=== PATIENT | female | born 1960 | race Caucasian/White ===

== ENCOUNTER 2019-06-10 07:09 | Outpatient (CLI) | payer BC, SELFPAY ==
--- NOTE | 2019-06-10 | XR_ITS ---
WS: [id number] PROCEDURE: XR chest 2V* [id number] CLINICAL INFORMATION: SHORTNESS OF BREATH; PREOP COMPARISON: 018 FINDINGS: Heart: Normal cardiac silhouette. Aortic calcification. Lungs: Chronic emphysematous changes. Subsegmental atelectasis left lung base. No acute pulmonary inf iltrates. Bones: Mild thoracic kyphosis. Osteopenia. XR/XR chest 2V* [id number] IMPRESSION: Subsegmental atelectasis left lung base. Chest otherwise unremarkable.
== END 2019-06-10 07:10 | disposition home or self-care (01) ==
LOC: RADOUTREAD 12:22
PROVIDERS: Family Provider Family Medicine; Visit Provider Family Medicine
DX: Z76.89 Persons encountering health services in other specified circumstances (principal)

== ENCOUNTER 2020-06-12 08:58 | Outpatient (CLI) | payer BC, SELFPAY ==
--- NOTE | 2020-06-12 09:02 | MM_ITS ---
WS: [id number] DIAGNOSTIC BILATERAL DIGITAL MAMMOGRAM WITH CAD RIGHT breast ultrasound, limited HISTORY: DISCHARGE FROM [facility] COMPARISON: 04/20/2018 and 11/09/2015 TECHNIQUE: Bilateral craniocaudad, mediolateral oblique, and mediolateral views are submitted. Spot c ompression RIGHT CC. Computer aided detection utilized. Breast composition: There are scattered areas of fibroglandular density. Normal fibroglandular patter n. No suspicious masses or calcifications. No nipple retraction or dilated ducts. RIGHT breast ultrasound, limited. No mass or dilated duct noted throughout the anterior breast. There is no nipple retraction. MM/[place] [id number] IMPRESSION: BI-RADS: 1-Negative FOLLOW UP: 1 Year Follow-up No mammographic or ultrasound abnormality RIGHT breast to explain nipple discha osmane.
== END 2020-06-12 08:59 | disposition home or self-care (01) ==
LOC: RADSHAW 09:00
PROVIDERS: PCP Family Medicine; Visit Provider Family Medicine
DX: N64.52 Nipple discharge (principal)
CPT/HCPCS: 76642; 77066

== ENCOUNTER 2020-08-08 15:22 | Outpatient (CLI) | payer BC, SELFPAY ==
--- NOTE | 2020-08-08 15:39 | XR_ITS ---
WS: [id number] DEXA (DUAL ENERGY X-RAY ABSORPTIOMETRY) Bone mineral density was performed using a [employer] machine. HISTORY: POST MENOPAUSAL COMPARISON: None available. Lumbar spine BMD (L1-L4): 0.951 g/cm2 T score: -1.9 Z score: -1.7 Total hip BMD: Left: 0.683 g/cm2. T score: -2.6 Z score: -2.3 Right: 0.664 g/cm2. T score: -2.7 Z score: -2.5 10 year probability of a major osteoporotic fracture is 19%. XR/XR DEXA axial skeleton* [id number] IMPRESSION: OSTEOPOROSIS based upon the WHO classification for females.
== END 2020-08-08 15:23 | disposition home or self-care (01) ==
LOC: RADWPI 15:28
PROVIDERS: PCP Family Medicine; Visit Provider Family Medicine
DX: Z78.0 Asymptomatic menopausal state (principal); M81.0 Age-related osteoporosis without current pathological fracture
CPT/HCPCS: 77080

== ENCOUNTER 2021-02-02 08:36 | Outpatient (CLI) | payer BC, SELFPAY ==
--- NOTE | 2021-02-02 09:00 | MR_ITS ---
WS: [id number] MRI NECK WITH CONTRAST TECHNIQUE: Noncontrast axial T1, axial T2 FSE fat sat, coronal T2 fat sat, coronal T1, coronal T1 fat sat, sagittal T2 fat sat, plus contrast enhanced coronal, sagittal, and axial T1 fat sat images obta ined. CLINICAL INFORMATION: ATYPICAL FACIAL PAIN COMPARISON: None. FINDINGS: Normal vascular flow voids at the skull base. Proximal 7th and 8th cranial nerves appear normal. Norm al trigeminal nerve root entry zones. Normal Meckel's cave. Mastoid air cells are well aerated. Mild mucosal thickening in the paranasal sinuses. Parotid glands are normal. Normal submandibular glands. Tongue base appears normal. Normal parapharyn geal fat. No cervical lymphadenopathy. Normal thyroid gland. No evidence of supraglottic or glottic m ass. Subglottic airway is patent. Normal cervical alignment. Disc osteophyte complexes mild central canal stenosis at C5-C6 and C6-C7 w orse at C5-C6. MR/MR orbit face neck wo/w* [id number] IMPRESSION: 1. Proximal 7th and 8th cranial nerves appear normal. Normal trigeminal nerve root entry zones. 2. Mild mucosal thickening in the paranasal sinuses. Mastoid air cells are wel l aerated. 3. No cervical lymphadenopathy. 4. No evidence of supraglottic or glottic mass. 5. Normal salivary glands. 6. Small disc osteophyte complexes at C5-C6 and C6-C7 with mild central canal stenosis.
[2021-02-02 09:46] LABS: Blood Urea Nitrogen 15 mg/dL (8-23)
[2021-02-02] MEDS: gadobenate dimeglumine 20 mL vial IV (10:11)
== END 2021-02-02 08:37 | disposition home or self-care (01) ==
PROVIDERS: PCP Family Medicine; Visit Provider Otolaryngology
DX: G50.1 Atypical facial pain (principal); M25.78 Osteophyte, vertebrae; M48.02 Spinal stenosis, cervical region
CPT/HCPCS: 70543; 82565; 84520; A9577

== ENCOUNTER → 2021-04-02 08:12 | Outpatient (BNVA) | payer BC, SELFPAY | PROVIDERS: PCP Family Medicine; Visit Provider Specialist | DX: G24.5 Blepharospasm (principal); E50.7 Other ocular manifestations of vitamin A deficiency; M41.9 Scoliosis, unspecified; Z87.891 Personal history of nicotine dependence | CPT/HCPCS: 99204 ==

== ENCOUNTER → 2021-04-26 08:25 | Outpatient (BNVA) | payer BC, SELFPAY | PROVIDERS: PCP Family Medicine; Visit Provider Specialist | DX: G24.5 Blepharospasm (principal); M50.90 Cervical disc disorder, unspecified, unspecified cervical region | CPT/HCPCS: 64612; 99213; 99214; J0585 ==

== ENCOUNTER → 2021-08-21 12:10 | Outpatient (BNVA) | payer BC, SELFPAY | PROVIDERS: PCP Family Medicine; Visit Provider Internal Medicine | DX: H15.009 Unspecified scleritis, unspecified eye (principal); H15.109 Unspecified episcleritis, unspecified eye; M19.90 Unspecified osteoarthritis, unspecified site | CPT/HCPCS: 36415; 81003; 82306; 82550; 83516; 85651; 86140; 86160; 86162; 86200; 86235; 86255; 86376; 86431; 86480; 86704; 86803; 87340 ==

== ENCOUNTER 2021-09-13 10:52 | Outpatient (CLI) | payer BC, SELFPAY ==
--- NOTE | 2021-09-13 11:00 | MM_ITS ---
WS: [id number] SCREENING 3D TOMOSYNTHESIS DIGITAL MAMMOGRAM WITH CAD HISTORY: SCREENING COMPARISON: 06/12/2020 and 04/20/2018 Bilateral CC and MLO views submitted. Computer aided detection analyzed. Breast composition: The breasts are almost entirely fatty. No suspicious masses, microcalcifications or architectural distortion. MM/[place] [id number] IMPRESSION: BI-RADS: 1-Negative FOLLOW UP: 1 Year Follow-up
--- NOTE | 2021-09-13 15:04 | XR_ITS ---
WS: [id number] Hips, bilateral. HISTORY: Chronic joint pain. COMPARISON: No similar studies. RIGHT hip: Mild narrowing of the hip joint. No significant osteophyte development. No erosions or sof t tissue abnormality. LEFT hip: Minimal narrowing of the LEFT hip joint. No significant osteophyte development. No erosions or soft tissue abnormality. XR/XR hip BI 3-4V wo/[place] [id number] IMPRESSION: Mild bilateral hip joint osteoarthritis.
--- NOTE | 2021-09-13 15:04 | XR_ITS ---
WS: [id number] SACROILIAC JOINTS TECHNIQUE: AP and oblique imaging is submitted. HISTORY: L40.9 - Psoriasis, unspecified COMPARISON: None available. SI joints are partially obscured by bowel gas and colon content. No significant sclerosis or widening . No erosions are identified. Limited visualization of the sacrum. No soft tissue abnormality. XR/XR sacroiliac jts m 3V [id number] IMPRESSION: Limited visualization of the SI joints due to GI tract contents. No abnormality is identified. No erosions or widening.
--- NOTE | 2021-09-13 15:04 | XR_ITS ---
WS: [id number] RIGHT HAND: 2 VIEW(S) TECHNIQUE: PA and lateral. HISTORY: M19.90 - Unspecified osteoarthritis, unspecified site COMPARISON: None available. No acute fracture or dislocation. No soft tissue or bone abnormality. No erosions. No soft tissue edema. XR/XR hand RT 2V [id number] IMPRESSION: Normal RIGHT hand.
--- NOTE | 2021-09-13 15:04 | XR_ITS ---
WS: [id number] LEFT HAND: 2 VIEW(S) TECHNIQUE: PA and lateral. HISTORY: M19.90 - Unspecified osteoarthritis, unspecified site COMPARISON: None available. No acute fracture or dislocation. No soft tissue or bone abnormality. No erosions. No soft tissue edema. XR/XR hand LT 2V [id number] IMPRESSION: Normal LEFT hand.
== END 2021-09-13 10:53 | disposition home or self-care (01) ==
LOC: RAD 10:56
PROVIDERS: PCP Family Medicine; Visit Provider Family Medicine
DX: Z12.31 Encounter for screening mammogram for malignant neoplasm of breast (principal); L40.9 Psoriasis, unspecified; M50.90 Cervical disc disorder, unspecified, unspecified cervical region; M41.9 Scoliosis, unspecified; H15.009 Unspecified scleritis, unspecified eye; H15.109 Unspecified episcleritis, unspecified eye
CPT/HCPCS: 72202; 73120; 73522; 77063; 77067

== ENCOUNTER 2022-04-25 03:06 | Inpatient (IN) | payer BC, SELFPAY ==
[2022-04-25] VITALS (14 sets, daily range): BP systolic 98–131; BP diastolic 57–84; PULSE 67–84; RESP 16–25; TEMP 36.6–36.9; O2SAT 93–100; BMI 30.6; BMI 32.3
--- NOTE | 2022-04-25 03:10 | XRR_ITS ---
PROCEDURE INFORMATION: Exam: XR Left Shoulder Exam date and time: 04/25/2022 3:15 AM Age: 61 years old Clinical indication: Injury or trauma; Blunt trauma (contusions or hematomas); Patient HX: Fall this a. M. In bathroom at home landing on left shoulder. C/O pain and unable to ambulate left extremity. TECHNIQUE: Imaging protocol: Radiologic exam of the Left shoulder. Views: 2 or more views. COMPARISON: 1. MR orbit face neck wo/w* [id number] 2021-02-02 09:19 2. CR XR chest 2V* [id number] 2019-06-10 07:09 3. CR XR chest 2V* [id number] 2017-08-26 14:04 FINDINGS: Bones/joints: Displaced fracture of the left numeral neck. Soft tissues: Normal. XR/XR shoulder LT min 2V* [id number] IMPRESSION: Displaced fracture of the left numeral neck.
--- NOTE | 2022-04-25 03:14 | W.ED.EXTPRO ---
HPI - Extremity Problem General: Chief complaint: Extremity Injury, Upper Stated complaint: Fell Shoulder, Arm Time Seen by Provider: 04/25/22 03:08 Source: patient Mode of arrival: ambulatory Limitations: no limitations History of Present Illness: 61-year-old female who states that she got up tonight to go to the bathroom slipped in dog vomit and fell on her left shoulder. States she felt a pop in her shoulder had pain since the event and unable to move her left arm states this happened just before arrival denies any other injuries denies hitting her head denies any neck pain she rates her pain a 7 out of 10 currently Associated symptoms: Deny chest pain, fever(s) or rash Review of Systems Const: Denies: fever(s), chills, body aches or change in appetite Eyes: Denies: blurry vision or eye discomfort ENMT: Denies: throat pain or dental pain Card: Denies: chest pain Resp: Denies: dyspnea GI: Denies: abdominal pain, nausea, vomiting or diarrhea : Denies: dysuria Musc: Reports: extremity pain; Denies: neck pain or back pain Skin/Breast: Denies: rash Neuro: Denies: headache(s) Psych: Denies: depression Dez/Lymph: Denies: easy bruising All/Imm: Denies: urticaria PFSH ED PFSH: Medical History Arthritis Blepharospasm Cervical disc disease 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 Family History Other CAD (coronary artery disease) Diabetes Hyperlipidemia Hypertension Lupus Denies family history of Rheumatoid arthritis Chronic kidney disease (CKD) Cancer Stroke Social History Smoking and tobacco status: former smoker Quit status (tobacco): has quit using tobacco Year quit tobacco: 5+years ago Alcohol intake: current Alcohol intake frequency: holidays/special occasions only History of recent travel: No Physical Exam Const: COMMON NORMALS: no acute distress, patient oriented x3 and healthy appearing HENMT: COMMON NORMALS: normocephalic and atraumatic HEAD & SCALP: normocephalic and atraumatic Eye: COMMON NORMALS: Equal, round and reactive pupils present and EOMs intact bilaterally PUPIL: Yes Equal, round and reactive pupils present Neck/C-Spine: COMMON NORMALS: full ROM and supple Chest: COMMONS NORMALS: normal inspection of the chest and normal palpation of entire chest wall Resp: COMMON NORMALS: normal respiratory effort, No retractions, No use of accessory muscles and clear to auscultation bilaterally AUSCULTATION: clear to auscultation bilaterally Cardio: COMMON NORMALS: regular rate, regular rhythm and No murmurs present (Cardio) RATE: regular rate RHYTHM: regular rhythm GI: COMMON NORMALS: Normal to inspection, nondistended, normoactive bowel sounds present, Soft to palpation, non-tender and no masses PALPATION: Yes Soft to palpation Extremity: NARRATIVE EXTREMITY EXAM: Tenderness to left shoulder Neuro: COMMON NORMALS: patient oriented x3, moves all extremities and no focal motor deficits Psych: COMMON NORMALS: mental status grossly normal, Normal thought process present and cooperative THOUGHT PROCESS: Normal thought process present Skin: COMMON NORMALS: no rashes or lesions noted and no wounds GENERAL SKIN EXAM: no rashes or lesions noted Course Vital Signs: Vital signs: Vital Signs Temperature 97.9 F 04/25/22 03:11 Pulse Rate 71 04/25/22 03:16 Respiratory Rate 19 H 04/25/22 03:11 Blood Pressure 98/79 04/25/22 03:11 Pulse Oximetry 100 04/25/22 03:11 Oxygen Delivery Me thod 04/25/22 03:11 MDM - Extremity (Nontraumatic) Medical Decision Making Patient presents here with a humerus fracture from a fall did speak to Dr. Navarro will admit for pain control and possible surgery. Discharge Plan Discharge Patient Disposition: Admitted As Inpatient Clinical Impression: Fracture, humerus Condition: Stable Coding Level of Care Code ED Inclusion Special Education Teacher for [employer] Fwd Exam Comprehensive
[2022-04-25] MEDS: morphine 4 mg/mL SDV 1 mL IVP ×2 (03:33→03:56)
--- NOTE | 2022-04-25 03:33 | XRR_ITS ---
PROCEDURE INFORMATION: Exam: XR Chest Exam date and time: 04/25/2022 3:48 AM Age: 61 years old Clinical indication: Screening exam; Pre-operative exam; Other: Ortho; Patient HX: Pre op for surgery due to traumatic shoulder fracture. Patient in sling. ; Additional info: Fall TECHNIQUE: Imaging protocol: Radiologic exam of the chest. Views: 1 view. COMPARISON: 1. CR XR chest 2V* [id number] 2019-06-10 07:09 2. CR XR chest 2V* [id number] 2017-08-26 14:04 3. CR (CHEST, ) 2022-04-25 03:15 4. MR orbit face neck wo/w* [id number] 2021-02-02 09:19 FINDINGS: Lungs: Unremarkable. No consolidation. Pleural spaces: Unremarkable. No pleural effusion. No pneumothorax. Heart/Mediastinum: Unremarkable. No cardiomegaly. Bones/joints: Left humeral neck fracture with displacement. XR/XR chest 1V portable [id number] IMPRESSION: Left humeral neck fracture with displacement.
[2022-04-25] MEDS: ondansetron 2 mg/ML SDV 2 mL 4 MG IVP (03:34)
--- NOTE | 2022-04-25 03:36 | P.HP_ITS ---
Providers/Chief Complaint Primary Care Provider: Marisol Almaguer MD Chief Complaint: Fell Shoulder, Arm History of Present Illness Carmen Whitfield is a 61 year old female who lives alone carries history of arthritis, otherwise no other significant medical history presenting after sustaining a fall. Patient is stating that she got up last night to go to the bathroom, it was dark she could not see the floor, she slipped and then she noticed that her dog had vomited on the floor. She fell on her left side. She did not lose consciousness, no chest pain, nausea, vomiting or diarrhea. In the ER she has been diagnosed with displaced left humeral fracture. Dr. Navarro is consulted. Patient is in excruciating pain. She lives alone Review of Systems Const: Denies: fever(s) Eyes: Denies: change in vision ENMT: Denies: throat pain Card: Denies: chest pain Resp: Denies: dyspnea GI: Denies: abdominal pain : Denies: flank pain Musc: Reports: extremity pain, joint stiffness and limited range of motion Skin/Breast: Denies: rash Neuro: Denies: headache(s) Psych: Reports: anxiety Endo: Denies: polyuria Dez/Lymph: Denies: easy bruising All/Imm: Denies: urticaria Medications/Allergies Home Medications Medication Instructions Recorded Confirmed Last Taken Type fluticasone propionate 50 1 spray intranasal DAILY 04/02/21 11/08/21 Unknown History mcg/actuation nasal spray,suspension (Flonase Allergy Relief) loratadine 10 mg tablet (Claritin) 10 mg PO DAILY 04/02/21 11/08/21 Unknown History multivitamin 1 tab PO DAILY 04/02/21 11/08/21 Unknown History Vitamin A 3,000 mcg PO 08/21/21 11/08/21 Unknown History biotin 2,500 mcg capsule 2,500 mcg PO DAILY 08/21/21 11/08/21 Unknown History calcium carbonate 600 mg calcium 600 mg PO DAILY 08/21/21 11/08/21 Unknown His tory (1,500 mg) tablet (Calcium) cholecalciferol (vitamin D3) 250 250 mcg PO DAILY 08/21/21 11/08/21 Unknown History mcg (10,000 unit) capsule magnesium 200 mg tablet 200 mg PO DAILY 08/21/21 11/08/21 Unknown History mecobalamin (vitamin B12) 1,000 1,000 mcg sublingual DAILY 08/21/21 11/08/21 Unknown History mcg disintegrating tablet,sublingual vit A 2,400 mcg-D3 18.75 mcg-vit E 2 tab PO BID 08/21/21 11/08/21 Unknown History 67 mg-K1 400 mcg-zinc chew tablet (ADEK Gummies Plus Zinc) alendronate 70 mg tablet (Fosamax) mg PO DAILY 09/13/21 11/08/21 Unknown History prednisone 5 mg tablet See Rx Instructions PO DAILY #90 09/13/21 11/08/21 Unknown Rx tabs Allergies Allergy/AdvReac Type Severity Reaction Status Date / Time No Known Allergies Allergy Verified 04/25/22 03:14 PFSH Acute PFSH: Medical History Arthritis Blepharospasm Cervical disc disease 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 Surgical History History of ankle surgery Family History Other CAD (coronary artery disease) Diabetes Hyperlipidemia Hypertension Lupus Denies family history of Rheumatoid arthritis Chronic kidney disease (CKD) Cancer Stroke Social History Smoking and tobacco status: former smoker Quit status (tobacco): has quit using tobacco Year quit tobacco: 5+years ago Alcohol intake: current Alcohol intake frequency: holidays/special occasions only History of recent travel: No Vitals/I&O/Wt Last Vital Signs Temp 97.9 F 04/25/22 03:11 Pulse 71 04/25/22 03:16 Resp 19 H 04/25/22 03:11 BP 98/79 04/25/22 03:11 Pulse Ox 100 04/25/22 03:11 O2 Del Method 04/25/22 03:11 Weight last 48 hrs Weight 78.471 kg Physical Exam Narrative: middle-aged female Currently in distress because of left arm pain Euvolemic Pleasant and cooperative Left arm is in a sling Awake and alert S1, S2 Abdomen soft, no audible stridor or wheezing Currently doing well on room air Lower extremity no edema Data 04/25/22 03:45 04/25/22 03:45 A&P Assessment and plan (1) Humerus fracture: (2) Fracture, humerus: (3) Fall: Plan Left humeral fracture Displaced fracture Dr. Spangler has been consulted Dr. Allen told the ER physician that he has to order arm fracture equipment from the [facility] which might take until Friday for now we are admitting patient for pain management She lives alone She is getting morphine and Dilaudid Senna S Full code Once Dr. Navarro has evaluated her then we can advance her diet I would also keep her on SCDs for now if she stays 1 more day kindly add anticoagulating agent in the morning Attestations Medical Necessity Statement*: Anticipating more than 2 midnights for management of left humeral fracture Time Spent in Patient Care: 40 Coding Level of Care Code Acute Patch Driller for [facility] Estephanie Diagnoses Humerus fracture S42.309A Fracture, humerus S42.309A Fall W19.XXXA
[2022-04-25 03:55] LABS: Basophils # 0.1 10^3/uL (0.0-0.1); Basophils % 0.7 %; Eosinophils # 0.3 10^3/uL (0.0-0.8); Eosinophils % 4.3 %; Hematocrit 45.2 % (37.0-47.0); Hemoglobin 14.5 g/dL (11.5-15.3); Lymphocytes # 2.8 10^3/uL (0.8-4.8); Lymphocytes % 37.3 %; Mean Corpuscular HGB Conc 32.1 g/dL (30.0-36.0); Mean Corpuscular Hemoglobin 30.9 pg (28.0-34.0); Mean Corpuscular Volume 96.2 fl (81-99); Mean Platelet Volume 10.8 fL (7.4-10.4); Monocytes # 0.4 10^3/uL (0.2-0.9); Monocytes % 5.7 %; Neutrophils # 3.83 10^3/uL (1.8-7.7); Neutrophils % 51.7 %; Nucleated Red Blood Cells % 0 %; Platelet Count 226 10^3/cmm (130-400); Red Cell Distribution Width 13.1 % (12.1-15.1); White Blood Count 7.4 10^3/uL (4.0-10.0)
[2022-04-25 04:17] LABS: Alanine Aminotransferase 29 U/L (0-33); Alkaline Phosphatase 141 U/L (35-105); Anion Gap 16.8 (5-19); Aspartate Amino Transferase 22 U/L (0-32); Blood Urea Nitrogen 15 mg/dL (8-23); Calcium 9.4 mg/dL (8.5-10.5); Carbon Dioxide 22 mmol/L (22-29); Chloride 104 mmol/L (98-107); Globulin 3.3 g/dL (1.3-4.6); Glomerular Filtration Rate 162.3 mL/min (90-130); Glucose 140 mg/dL (65-115); Osmolality Calculated 291 mOsm/kg (285-295); Potassium 3.8 mmol/L (3.5-5.1); Sodium 139 mmol/L (136-145); Total Bilirubin 0.4 mg/dL (0.15-1.2); Total Protein 7.3 g/dL (6.6-8.7)
[2022-04-25] MEDS: sodium chloride 0.9% 1,000 ML 75 ML IV (04:40)
[2022-04-25] MEDS: HYDROmorphone 1 mg/mL INJ 1 mL 0.4 MG IVP ×3 (04:41→10:10)
--- NOTE | 2022-04-25 05:01 | PC.NURSE ---
20G IV to right FA infiltrated at this time. IV catheter removed w/tip intact. Pressure drsg applied. 20G IV to R hand x 1 attempt. Successful, good blood return noted, and flushes w/ease. IV fluids started at this time.
[2022-04-25] MEDS: morphine IR 15 mg Tablet PO (05:30)
--- NOTE | 2022-04-25 05:44 | PC.NURSE ---
Referred pt to Dr. Wilson for review of ineffective pain management at this time. Awaiting orders.
--- NOTE | 2022-04-25 06:51 | PC.NURSE ---
NO received and noted for Dilaudid 0.4mg x 1 dose now. Will pull from [facility] and administer.
[2022-04-25] MEDS: docusate sodium 100 mg Capsule PO (10:16)
--- NOTE | 2022-04-25 10:45 | PM.CONSULT ---
Providers/Reason For Consult Consulting Physician/Specialty*: Colt Navarro MD; orthopedic surgery Reason for Consult*: Proximal humerus fracture Attending Physician: Manav Perez MD Primary Care Provider: Marisol Almaguer MD History of Present Illness History of Present Illness Carmen Whitfield is a 61 year old female tripped over her dog last night with immediate pain in her left shoulder. She was seen in our emergency room where she was noted to have a severely comminuted fracture of the left proximal humerus. She had her pain was not well controlled in the ER and she has been admitted for pain control and possible treatment pending this consultation. She denies any significant left shoulder pain prior to this. He reported undergoing a dental procedure last week with the development of infection over her right cheek. She was begin on cephalexin 2 days ago and it is improved Medications/Allergies Home Medications Medication Instructions Recorded Confirmed Last Taken Type fluticasone propionate 50 2 spray intranasal DAILY PRN 04/02/21 04/25/22 Unknown History mcg/actuation nasal Allergy Symptoms spray,suspension (Flonase Allergy Relief) biotin 2,500 mcg capsule 2,500 mcg PO DAILY 08/21/21 04/25/22 Unknown History cholecalciferol (vitamin D3) 250 250 mcg PO DAILY 08/21/21 04/25/22 Unknown History mcg (10,000 unit) capsule magnesium 200 mg tablet 200 mg PO DAILY 08/21/21 04/25/22 Unknown History vit A 2,400 mcg-D3 18.75 mcg-vit E 2 tab PO BID 08/21/21 04/25/22 Unknown History 67 mg-K1 400 mcg-zinc chew tablet (ADEK Gummies Plus Zinc) alendronate 70 mg tablet (Fosamax) 70 mg PO Q7D 09/13/21 04/25/22 Unknown History cephalexin 500 mg capsule 500 mg PO BID 04/25/22 04/25/22 Unknown History cyanocobalamin (vitamin B-12) 1,000 mcg PO DAILY 04/25/22 04/25/22 Unknown History 1,000 mcg tablet (Vitamin B-12) diclofenac sodium 75 mg 75 mg PO BID 04/25/22 04/25/22 Unknown History tablet,delayed release mupirocin 2 % topical ointment 1 applic topical TID 04/25/22 04/25/22 Unknown History vitamin A 2,400 mcg capsule 2,400 mcg PO DAILY 04/25/22 04/25/22 Unknown History zinc acetate 50 mg (zinc) capsule 50 mg PO DAILY 04/25/22 04/25/22 Unknown History Allergies Allergy/AdvReac Type Severity Reaction Status Date / Time No Known Allergies Allergy Verified 04/25/22 08:55 Current Medications Generic Name Dose Route Start Last Admin Trade Name Freq PRN Reason Stop Dose Admin Docusate Sodium 100 mg 04/25/22 10:10 04/25/22 10:16 Docusate Sodium 100 Mg Capsule PO 100 mg BID MUKESH Administration Hydromorphone HCl 0.4 mg 04/25/22 04:20 04/25/22 10:10 Hydromorphone 1 Mg/Ml Inj 1 Ml IVP 0.4 mg Q4H PRN Administration pain Sodium Chloride 1,000 mls @ 75 mls/hr 04/25/22 04:20 04/25/22 04:40 Sodium Chloride 0.9% IV 75 mls/hr .[id number] MUKESH Administration Morphine Sulfate 15 mg 04/25/22 04:20 04/25/22 05:30 Morphine Ir 15 Mg Tablet PO 15 mg Q6H PRN Administration pAIN PFSH Acute PFSH: Medical History Arthritis Blepharospasm Cervical disc disease 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 Surgical History History of ankle surgery Family History Other CAD (coronary artery disease) Diabetes Hyperlipidemia Hypertension Lupus Denies family history of Rheumatoid arthritis Chronic kidney disease (CKD) Cancer Stroke Social History Smoking and tobacco status: former smoker Quit status (tobacco): has quit using tobacco Year quit tobacco: 5+years ago Alcohol intake: current Alcohol intake frequency: holidays/special occasions only History of recent travel: No Vitals/I&O/Wt Last Vital Signs Temp 98.3 F 04/25/22 08:00 Pulse 84 04/25/22 08:00 Resp 16 04/25/22 06:52 BP 115/75 04/25/22 08:00 Pulse Ox 93 04/25/22 08:00 O2 Del Method 04/25/22 08:00 Weight last 48 hrs Weight 182 lb 9 oz Weight 182 lb 9 oz Weight 173 lb Physical Exam Narrative: Patient is a heavyset female sitting up in bed. She holds her left arm in a sling. He has obvious swelling about her left shoulder. Has exquisite pain with motion of the left shoulder. She refuses to fire her deltoid. Will fire her biceps and triceps but minimally moves her elbow due to pain. Can flex extend her ulnar 4 fingers as well as extend oppose and abduct her thumb. Sensation is intact light touch Data 04/25/22 03:45 04/25/22 03:45 Xray Ortho: My impression: An AP of the shoulder and internal X rotation are reviewed. The patient has a comminuted fracture of the proximal humerus. She has displacement across the surgical neck and at least a free greater tuberosity fragment. Cortices are thinned and there appears to be some component of osteoporosis. A&P Assessment and plan (1) Closed fracture of left proximal humerus: Discussed treatment with Carmen. This is a very comminuted fracture. She would appear to have some compromised bone quality on her radiographs as well. I discussed treatment options. I discussed plate fixation versus reverse total shoulder with care. She at this point told me that she is actually is under the care of Dr. Spain in [place]. He would like to pursue her care there. I told her this is reasonable. I told her that her treatment is not something that needs to be addressed immediately. We can discharge her home and she can contact Dr. Spain's office for follow-up. She was happy with this plan. I can see her back if any new problems arise. Coding Level of Care Code Acute Web Site Project Manager for [facility] Fwd Diagnoses Closed fracture of left proximal humerus S42.202A
--- NOTE | 2022-04-25 13:25 | P.DS_ITS ---
Discharge Providers Date of Admission: 04/25/22 03:35 Date of Discharge: April 25, 2022 Attending Provider at Admission: Parul Wilson MD Attending Provider at Discharge: Manav Perez MD Primary Care Provider: Marisol Almaguer MD Diagnoses at Discharge Discharge Diagnosis (1) Closed fracture of left proximal humerus: Status: Acute Reason for Visit Reason for Visit: Fell Shoulder, Arm Hospital Course Hospital Course 61-year-old female with past medical history of arthritis was admitted for management of left humerus fracture after she experienced what appears to be mechanical fall at home experienced last night while going to bathroom as it was dark , she could not see the floor, she slipped and then she noticed that her dog had vomited on the floor.she was seen by orthopedic, surgical intervention, patient has decided to go to a primary orthopedic in [place]. Left upper extremity is currently in sling, she is being discharged on pain medications.To Follow-up with her orthopedic surgeon as outpatient. Physical Exam Resp: COMMON NORMALS: clear to auscultation bilaterally EFFORT & INSPECTION: Yes symmetric chest movement AUSCULTATION: clear to auscultation bilaterally Cardio: COMMON NORMALS: regular rate, regular rhythm, S1 normal heart sound present, S2 normal heart sound present, No gallops present (Cardio), No murmurs present (Cardio), No rub (Cardio) and Peripheral pulses 2+ throughout RATE: regular rate RHYTHM: regular rhythm HEART SOUNDS: S1 normal heart sound present and S2 normal heart sound present PERIPHERAL PULSES: Peripheral pulses 2+ throughout GI: COMMON NORMALS: Normal to inspection, nondistended, normoactive bowel sounds present, Soft to palpation, non-tender, No hepatosplenomegaly present and no masses AUSCULTATION: Yes normoactive bowel sounds PALPATION: Yes Soft to palpation and Yes No hepatosplenomegaly present RECTAL EXAM: deferred Extremity: COMMON NORMALS: no clubbing, cyanosis or edema and no pedal edema Discharge Data Studies Completed and Pending Completed Studies During Hospitalization Category Date Time Status XR chest 1V portable [id number] Stat Exams 04/25/22 03:33 Completed XR shoulder LT min 2V* [id number] Stat Exams 04/25/22 03:10 Completed Pending at discharge Category Date Time Status Basic Metabolic Panel AM LABS Lab 04/26/22 04:00 Ordered Complete Blood Count w/Auto AM LABS Lab 04/26/22 04:00 Ordered Radiology Impressions Shoulder X-Ray 04/25/22 03:10 IMPRESSION: Displaced fracture of the left numeral neck. Chest X-Ray 04/25/22 03:33 IMPRESSION: Left humeral neck fracture with displacement. Laboratory Results WBC 7.4 10^3/uL (4.0-10.0) 04/25/22 03:45 RBC 4.70 10^6/uL (4.1-5.3) 04/25/22 03:45 Hgb 14.5 g/dL (11.5-15.3) 04/25/22 03:45 Hct 45.2 % (37.0-47.0) 04/25/22 03:45 MCV 96.2 fl (81-99) 04/25/22 03:45 MCH 30.9 pg (28.0-34.0) 04/25/22 03:45 MCHC 32.1 g/dL (30.0-36.0) 04/25/22 03:45 RDW 13.1 % (12.1-15.1) 04/25/22 03:45 Plt Count 226 10^3/cmm (130-400) 04/25/22 03:45 MPV 10.8 fL (7.4-10.4) H 04/25/22 03:45 Neut % (Auto) 51.7 % 04/25/22 03:45 Lymph % (Auto) 37.3 % 04/25/22 03:45 [place] % (Auto) 5.7 % 04/25/22 03:45 Eos % (Auto) 4.3 % 04/25/22 03:45 Baso % (Auto) 0.7 % 04/25/22 03:45 Neut # (Auto) 3.83 10^3/uL (1.8-7.7) 04/25/22 03:45 Lymph # (Auto) 2.8 10^3/uL (0.8-4.8) 04/25/22 03:45 [place] # (Auto) 0.4 10^3/uL (0.2-0.9) 04/25/22 03:45 Eos # (Auto) 0.3 10^3/uL (0.0-0.8) 04/25/22 03:45 Baso # (Auto) 0.1 10^3/uL (0.0-0.1) 04/25/22 03:45 Nucleated RBC % (auto) 0 % 04/25/22 03:45 Nucleated RBCs # 0.0 /100WBC 04/25/22 03:45 PT 13.50 SECONDS (12.1-14.9) 04/25/22 03:45 INR 1.00 (0.8-1.2) 04/25/22 03:45 Sodium 139 mmol/L (136-145) 04/25/22 03:45 Potassium 3.8 mmol/L (3.5-5.1) 04/25/22 03:45 Chloride 104 mmol/L (98-107) 04/25/22 03:45 Carbon Dioxide 22 mmol/L (22-29) 04/25/22 03:45 Anion Gap 16.8 (5-19) 04/25/22 03:45 BUN 15 mg/dL (8-23) 04/25/22 03:45 Creatinine 0.4 mg/dL (0.5-0.9) L 04/25/22 03:45 GFR Calculation 162.3 mL/min (90-130) H 04/25/22 03:45 Glucose 140 mg/dL (65-115) H 04/25/22 03:45 Calculated Osmolality 291 mOsm/kg (285-295) 04/25/22 03:45 Calcium 9.4 mg/dL (8.5-10.5) 04/25/22 03:45 Total Bilirubin 0.4 mg/dL (0.15-1.2) 04/25/22 03:45 AST 22 U/L (0-32) 04/25/22 03:45 ALT 29 U/L (0-33) 04/25/22 03:45 Alkaline Phosphatase 141 U/L (35-105) H 04/25/22 03:45 Total Protein 7.3 g/dL (6.6-8.7) 04/25/22 03:45 Albumin 4.0 g/dL (3.5-5.2) 04/25/22 03:45 Globulin 3.3 g/dL (1.3-4.6) 04/25/22 03:45 Vitals Last Vital Signs Temp 98.4 F 04/25/22 11:13 Pulse 79 04/25/22 11:13 Resp 16 04/25/22 06:52 BP 123/75 04/25/22 11:13 Pulse Ox 94 04/25/22 11:13 O2 Del Method 04/25/22 11:13 Discharge Plan Discharge Patient Disposition: Home Condition: Stable Prescriptions: Continued cholecalciferol (vitamin D3) 250 mcg (10,000 unit) capsule 250 mcg PO DAILY magnesium 200 mg tablet 200 mg PO DAILY biotin 2,500 mcg capsule 2,500 mcg PO DAILY ADEK Gummies Plus Zinc 2,400 mcg-18.75 [id number] tablet,chewable 2 tab PO BID alendronate [Fosamax] 70 mg tablet 70 mg PO Q7D Rx Instructions: on fri fluticasone propionate [Flonase Allergy Relief] 50 mcg/actuation spray,suspension 2 spray intranasal DAILY PRN (Reason: Allergy Symptoms) Rx Instructions: administer into each nostril vitamin A 2,400 mcg Capsule 2,400 mcg PO DAILY zinc acetate 50 mg (zinc) Capsule 50 mg PO DAILY Vitamin B-12 1,000 mcg Tablet 1,000 mcg PO DAILY cephalexin 500 mg capsule 500 mg PO BID Rx Instructions: for 10 days diclofenac sodium 75 mg tablet,delayed release (DR/EC) 75 mg PO BID mupirocin 2 % ointment 1 applic TOPICAL TID Rx Instructions: for 5 days Discharge Orders: Discharge Order (Routine); Ordered 04/25/22 Ordered By: Manav Perez Referrals: Marisol Almaguer MD [Primary Care Provider] - 05/15/22 2:00 pm Patient Instructions: Opioid Safety Discharge Attestations Time Spent in Discharge Care*: greater than 30 min Quality Metrics Clinical Quality Measures [ No reported AMI, CVA or VTE this stay] Coding Level of Care Code Acute Chg FW DC note Exam Expanded Problem Focused Diagnoses Closed fracture of left proximal humerus S42.202A
--- NOTE | 2022-04-25 13:33 | PC.NURSE ---
DR. WILLIS GAVE THE OKAY TO SEND IMAGE OF SHOULDER TO DR. LYNNE'S OFFICE. RADIOLOGY CONTACTED.
[2022-04-25] MEDS: oxyCODONE-APAP 5-325 mg Tablet 1 TAB PO (14:48)
--- NOTE | 2022-04-25 15:55 | PC.NURSE ---
THIS NURSE CONTACTED [facility] AT 1545 TO ASK IF THEY RECEIVED THE IMAGE OF PATIENTS SHOULDER XRAY. THEY STATED THAT THEY HAD NOT. I TOLD THEM THAT THE IMAGE WAS AIR DROPPED TO [facility] SO IT COULD BE VIEWED THROUGH THEIR CHARTING SYSTEM. THE STAFF ON THE PHONE STATED THEY ARE NOT ASSOCIATED WITH [facility] IN ANYWAY . THE STAFF ASKED IF I COULD FAX THE XRAY REPORT. THIS NURSE FAXED THE REPORT IMMEDIATELY.
--- NOTE | 2022-04-25 16:02 | PC.NURSE ---
1600 - PLAN TO DISCHARGE HOME. IV IN RIGHT HAND REMOVED. BEGINS TO GO OVER PAPERWORK AND PT STATES I DID NOT REALIZE THE PLAN WAS TO DISCHARGE HOME. PT REMINDED OF CONVERSATION WITH CHARGE NURSE AND MD. PT VERBALIZES UNDERSTANDING. PT THEN STATES THAT SHE NEEDS MORE PAIN MEDICATION THAN ORDERED FOR DISCHARGE D/T NOT BEING SEEN UNTIL 04/29/2022. THIS NURSE ASKS ABOUT POSSIBLE [facility] VISIT ON 04/26/2022, THIS WAS DISCUSSED EARLIER IN THE DAY. PT RESPONDS SHE SAID IT WILL BE AT LEAST UNTIL FRIDAY BECAUSE YOU DID NOT SEND MY SHIT ON TIME. THIS NURSE STATES THAT SHE WILL ASK MD FOR MORE MEDICATION. DR. ALLISON NOTIFIED OF MEDICATION NEEDS. DR. ALLISON STATES HE WILL SEND IN ENOUGH TO LAST UNTIL 04/29/2022.
--- NOTE | 2022-04-25 16:57 | PC.NURSE ---
1700- MEDICATION UPDATED, PAPERWORK REVIEWED. PT REQUEST DISC FROM RADIOLOGY OF XRAY FOR [facility]. CALLS RADIOLOGY. AWAITING DISC ARRIVAL.
--- NOTE | 2022-04-25 17:40 | PC.NURSE ---
1740 - NO PAIN MEDICATION AVAILABLE AT [facility]. DR. ALLISON SENDS PRESCRIPTION TO [facility] PER PATIENT REQUEST. PT DISCHARGED WITH FAMILY AT SIDE. ALL BELONGINGS SENT WITH PATIENT. DISC OF XRAYS SENT WITH PT.
== END 2022-04-25 17:40 | disposition home or self-care (01) | DRG 563 ==
LOC: ER 03:48 → MEDSURG 03:50
PROVIDERS: Admitting Provider Internal Medicine; Emergency Provider Emergency Medicine; PCP Family Medicine; Visit Provider Internal Medicine
DX: S42.212A Unspecified displaced fracture of surgical neck of left humerus, initial encounter for closed fracture (principal); W01.0XXA Fall on same level from slipping, tripping and stumbling without subsequent striking against object, initial encounter; G89.11 Acute pain due to trauma; K04.7 Periapical abscess without sinus; B95.62 Methicillin resistant Staphylococcus aureus infection as the cause of diseases classified elsewhere; Z79.2 Long term (current) use of antibiotics
CPT/HCPCS: 71045; 73030; 80053; 85025; 85610; 96374; 96375; 99285; J1170; J2270; J2405; J7030

== ENCOUNTER 2022-12-02 11:18 | Outpatient (CLI) | payer BC, SELFPAY ==
--- NOTE | 2022-12-02 11:26 | MM_ITS ---
WS: [id number] BILATERAL 3D TOMOSYNTHESIS DIGITAL SCREENING MAMMOGRAPHY WITH CAD CLINICAL INFORMATION: SCEENING HISTORY: Screening mammogram. No current complaints. COMPARISON: 2021 TECHNIQUE: Bilateral CC and MLO views. FINDINGS: Scattered fibroglandular densities bilaterally. No suspicious focal mass, asymmetry, calcifications, or architectural distortion. No evidence of malignancy. MM/[place] [id number] IMPRESSION: BI-RADS: 1-Negative FOLLOW UP: 1 Year Follow-up Recommend return to annual screening mammography.
== END 2022-12-02 11:19 | disposition home or self-care (01) ==
LOC: MOBLMAM 11:20
PROVIDERS: PCP Family Medicine; Visit Provider Family Medicine
DX: Z12.31 Encounter for screening mammogram for malignant neoplasm of breast (principal)
CPT/HCPCS: 77063; 77067

== ENCOUNTER 2023-03-13 11:35 | Outpatient (CLI) | payer BC, SELFPAY ==
--- NOTE | 2023-03-13 | MR_ITS ---
WS: [id number] MRI HEAD WITHOUT CONTRAST TECHNIQUE: Sagittal T1, T2 axial, T2 axial FLAIR, axial and coronal T1 images, axial susceptibility w eighted imaging, axial diffusion weighted images, and coronal T2 images were obtained. CLINICAL INFORMATION: RIGHT EYE PAIN COMPARISON: None. FINDINGS: No evidence of restricted diffusion to suggest acute ischemia. Ventricular system and basilar cistern s are patent. Mild small vessel changes. Mild parenchymal volume loss. Normal posterior fossa. Normal vascular flow voids at the skull base. No extra-axial fluid collections. Mucosal thickening in the p aranasal sinuses with a small amount of scattered fluid. Mastoid air cells are well aerated. Normal p osterior nasopharynx. Visualized orbits appear normal. No hemosiderin on susceptibility-weighted images. Normal optic chiasm and pituitary infundibulum. Tem poral lobes and hippocampal formations are normal in appearance. IMPRESSION: 1. No evidence of restricted diffusion to suggest acute ischemia. 2. Mild small vessel changes with mild parenchymal volume loss. 3. Mild paranasal sinusitis with a small amount of fluid in the ethmoid air cells, RIGHT maxillary s inus, and RIGHT sphenoid sinus. 4. Mastoid air cells are well aerated. 5. No hemosiderin on susceptibility-weighted images. 6. No other suspicious findings.
== END 2023-03-13 11:36 | disposition home or self-care (01) ==
LOC: RAD 11:35
PROVIDERS: PCP Family Medicine; Visit Provider Family Medicine
DX: H57.11 Ocular pain, right eye (principal); J32.4 Chronic pansinusitis
CPT/HCPCS: 70551

== ENCOUNTER → 2023-09-30 18:56 | Outpatient (BNVA) | payer BC, SELFPAY | PROVIDERS: PCP Family Medicine; Visit Provider Emergency Medicine | DX: M54.50 Low back pain, unspecified (principal) | CPT/HCPCS: 81000; 87086 ==

== ENCOUNTER 2023-10-16 07:35 | Outpatient (CLI) | payer BC, SELFPAY ==
--- NOTE | 2023-10-16 08:00 | NM_ITS ---
WS: [id number] NUCLEAR MEDICINE HIDA SCAN HISTORY: RUQ PAIN COMPARISON: None available. TECHNIQUE: The patient was intravenously injected with 7.5 mCi of TC99m Mebrofenin. Immediate imaging over the right upper quadrant was followed by 5 minute image and additional images for a total of 12 0 minutes. Normal uptake of radiotracer throughout the liver. Gallbladder is not identified at 120 minutes. There is excretion from the liver as normally expected. Common bile duct is visualized by 10 minutes. No gallbladder ejection fraction performed without visualizing the gallbladder. NM/NM hepatobiliary wo phar [id number] IMPRESSION: 1. Patent common bile duct. 2. At 120 minutes postinjection the gallbladder is not visualized. This may re present acute cholecystitis or gallbladder dysfunction. Chronic acalculous chol ecystitis may appear similar. No recent gallbladder ultrasound has been perform ed. Gallbladder ultrasound may be of benefit to evaluate for cholelithiasis or wall thickening or acute cholecystitis.
== END 2023-10-16 07:36 | disposition home or self-care (01) ==
PROVIDERS: PCP Family Medicine; Visit Provider Family Medicine
DX: N23 Unspecified renal colic (principal)
CPT/HCPCS: 78226; A9537

== ENCOUNTER 2023-12-09 10:27 | Outpatient (CLI) | payer BC, SELFPAY ==
--- NOTE | 2023-12-09 10:31 | MM_ITS ---
WS: [id number] BILATERAL 3D TOMOSYNTHESIS DIGITAL SCREENING MAMMOGRAM WITH CAD CLINICAL INFORMATION: SCREENING HISTORY: Screening mammogram. No current complaints. COMPARISON: 2022 TECHNIQUE: Bilateral CC and MLO views. FINDINGS: Fatty-replaced breasts bilaterally. No suspicious focal mass, asymmetry, calcifications, or director of architecture ural distortion. No evidence of malignancy. MM/[place] [id number] IMPRESSION: BI-RADS: 1-Negative FOLLOW UP: 1 Year Follow-up Recommend return to annual screening mammography.
== END 2023-12-09 10:28 | disposition home or self-care (01) ==
LOC: RAD 10:27
PROVIDERS: PCP Family Medicine; Visit Provider Family Medicine
DX: Z12.31 Encounter for screening mammogram for malignant neoplasm of breast (principal); R92.313 Mammographic fatty tissue density, bilateral breasts
CPT/HCPCS: 77063; 77067

== ENCOUNTER 2024-09-13 10:03 | Emergency (ER) | payer BC, SELFPAY ==
[2024-09-13] VITALS (8 sets, daily range): BP systolic 121–148; BP diastolic 67–85; PULSE 45–83; RESP 14–18; TEMP 36.7; O2SAT 97–100; BMI 31.6
--- NOTE | 2024-09-13 10:13 | ECG_ITS ---
[employer] Test Date: 2024-09-13 Pat Name: Carmen Whitfield Department: Room: Gender: Female Outpatient Phlebotomist: : 1960 Requested By: Sharon Jason Order Number: [id number] Vernon MD: KAYLEE OROSCO Measurements Intervals [place] Rate: 54 P: 37 ME: 147 QRS: -23 QRSD: 84 T: 29 QT: 437 QTc: 416 Interpretive Statements SINUS BRADYCARDIA MODERATE VOLTAGE CRITERIA FOR LVH, CONSIDER NORMAL VARIANT [MEETS CRITERIA IN ONE OF: R(aVL), S(V1), R(V5), R(V5/V6)+S(V1)] POSSIBLE ANTERIOR MYOCARDIAL INFARCTION , PROBABLY OLD [30 ms Q WAVE IN V3/V4, OR R < 0.2 mV IN V4] No previous ECG available for comparison Electronically Signed On 09-13-2024 20:58:11 CDT by KAYLEE OROSCO [id number]
--- NOTE | 2024-09-13 11:06 | XRR_ITS ---
PROCEDURE INFORMATION: Exam: XR Chest Exam date and time: 09/13/2024 11:22 AM Age: 63 years old Clinical indication: Pain; Angina pectoris; Additional info: Chest pain TECHNIQUE: Imaging protocol: Radiologic exam of the chest. Views: 1 view. COMPARISON: CR XR chest 1V portable [id number] 04/25/2022 3:48 AM FINDINGS: Lungs: There is minimal linear atelectasis or scarring at the left lung base. No consolidated infiltrates are appreciated. Pleural spaces: Unremarkable. No pleural effusion. No pneumothorax. Heart/Mediastinum: Unremarkable. No cardiomegaly. Bones/joints: There are postoperative changes involving the left shoulder and proximal right humerus. XR/XR chest 1V portable [id number] IMPRESSION: 1. Minimal linear atelectasis or scarring at the left lung base.
[2024-09-13 11:44] LABS: Basophils # 0.1 10^3/uL (0.0-0.1); Basophils % 0.9 %; Eosinophils # 0.2 10^3/uL (0.0-0.8); Eosinophils % 1.9 %; Hematocrit 39.1 % (36-47); Lymphocytes # 2.7 10^3/uL (0.8-4.8); Lymphocytes % 23.9 %; Mean Corpuscular HGB Conc 29.2 g/dL (30-55); Mean Corpuscular Hemoglobin 25.8 pg (27-33); Mean Corpuscular Volume 88.5 fl (85-98); Mean Platelet Volume 11.1 fL (7.4-10.4); Monocytes # 0.7 10^3/uL (0.2-0.9); Monocytes % 5.7 %; Neutrophils # 7.68 10^3/uL (1.8-7.7); Neutrophils % 67.3 %; Nucleated Red Blood Cells % 0 %; Platelet Count 335 10^3/cmm (157-399); Red Blood Count 4.42 10^6/uL (3.85-5.65); Red Cell Distribution Width 14.3 % (12.1-15.1)
--- NOTE | 2024-09-13 11:54 | ED_ITS ---
HPI - Chest Pain 2 General: Chief Complaint: Chest Pain Stated Complaint: chest pain Time Seen by Provider: 09/13/24 11:40 Source: patient Mode of arrival: ambulatory Limitations: no limitations History of Present Illness: Patient is a very nice 63-year-old female who presents to ED today with complaints of chest pain that she describes as heartburn. She states symptoms began yesterday. She has no known previous cardiac history. She states she treated her discomfort with Tums without much relief. She states she has been able to eat since without any worsening discomfort. Pain does not seem to be affected by exertion or rest. She is not complaining of shortness of breath, difficulty breathing, hemoptysis. No recent illness/URI. Patient arrives in no acute distress with stable vital signs. MD complaint: chest pain Onset (ago): day(s) (yesterday) Prior episodes: No Onset: during rest Pain location: right chest Pain radiation: none Severity: mild Quality: other ( heartburn ) Relieving factors: nothing Exacerbating factors: nothing Associated symptoms: Deny abdominal pain, dyspnea, fever(s), nausea, palpitations, syncope or vomiting Treatment prior to arrival: none Risk Factors: Coronary artery disease risk factors: none Thoracic aortic dissection risk factors: none Related Data Home Medications ?Medication ?Instructions ?Recorded ?Confirmed Veggie Tablet 1 tab PO DAILY 08/20/2408/18 oxybutynin chloride 10 mg 10 mg PO DAILY 08/20/2408/18 tablet,extended release 24 hr methocarbamol 500 mg tablet 500 - 1,000 mg PO Q6H PRN Muscle 09/13/24 09/13/24 Spasm methylprednisolone 4 mg tablets in See Rx Instructions .Route .COMPLEX 09/13/24 09/13/24 a dose pack multivitamin 1 tab PO DAILY 09/13/2408/18 Previous Rx's ?Medication ?Instructions ?Recorded rosuvastatin 20 mg tablet 20 mg PO DAILY #90 tabs 09/10 Allergies Allergy/AdvReac Type Severity Reaction Status Date / Time No Known Allergies Allergy Verified 09/13/24 10:21 Review of Systems 2 Const: Denies: fever(s) or chills Eyes: Denies: change in vision or blurry vision Card: Reports: chest pain; Denies: palpitations, irregular heart rhythm, edema, swelling of feet/ankles, lightheadedness, syncope, pre-syncope, dyspnea on exertion, orthopnea, leg pain with exertion or acrocyanosis Resp: Denies: dyspnea, productive cough or pain on inspiration GI: Reports: heartburn; Denies: abdominal pain, nausea, vomiting, diarrhea or change in bowel habits : Denies: flank pain, difficulty voiding, dysuria, urinary frequency, urinary urgency or urinary hesitancy Musc: Denies: neck pain, back pain, extremity pain, extremity swelling or joint pain Skin/Breast: Denies: rash Neuro: Denies: headache(s), numbness in extremities, weakness in extremities, sensory changes or dizziness PFSH ED 2 PFSH: Medical History Abdominal aortic aneurysm (AAA) ESR raised Episcleritis/scleritis Arthritis Cervical disc disease Kyphoscoliosis Xerophthalmia Blepharospasm Surgical History History of ankle surgery Family History Other CAD (coronary artery disease) Diabetes Hyperlipidemia Hypertension Lupus Denies family history of Rheumatoid arthritis Chronic kidney disease (CKD) Cancer Stroke Social History Smoking and tobacco/nicotine status: former use of tobacco/nicotine Quit status (tobacco/nicotine): has quit using Year quit tobacco: 5+years ago Alcohol intake: current Alcohol intake frequency: holidays/special occasions only Substance/Drug Use: never Physical Exam 2 Const: COMMON NORMALS: no acute distress, patient oriented x3, no limitations, alert and well nourished GENERAL APPEARANCE: cooperative NUTRITIONAL APPEARANCE: overweight HENMT: COMMON NORMALS: normocephalic and atraumatic HEAD & SCALP: n ormocephalic and atraumatic Neck/C-Spine: COMMON NORMALS: full ROM, no lymphadenopathy, supple and no meningeal signs Chest: COMMONS NORMALS: normal inspection of the chest and normal palpation of entire chest wall Resp: COMMON NORMALS: normal respiratory effort and clear to auscultation bilaterally AUSCULTATION: clear to auscultation bilaterally Cardio: COMMON NORMALS: regular rate and regular rhythm RATE: regular rate RHYTHM: regular rhythm GI: COMMON NORMALS: Normal to inspection, nondistended, normoactive bowel sounds present, Soft to palpation, non-tender, No hepatosplenomegaly present and no masses PALPATION: Yes Soft to palpation and Yes No hepatosplenomegaly present : COMMON NORMALS: Yes no CVA tenderness BLADDER/KIDNEY EXAM: Yes no CVA tenderness Back/Pelvis: COMMON NORMALS: no CVA tenderness and thoracic and lumbar spine normal to inspection Extremity: COMMON NORMALS: normal to inspection, capillary refill normal, no clubbing, cyanosis or edema, no calf tenderness and no pedal edema GENERAL: Y es normal exam except as noted Neuro: COMMON NORMALS: patient oriented x3, moves all extremities, no focal motor deficits and no sensory deficits noted SENSORIUM/ORIENTATION: Yes alert MENINGEAL SIGNS: Yes no meningeal signs Skin: COMMON NORMALS: no rashes or lesions noted GENERAL SKIN EXAM: no rashes or lesions noted Course 2 Vital Signs: Vital signs: Vital Signs Temperature 98.0 F 09/13/24 10:11 Pulse Rate 50 L 09/13/24 14:59 Respiratory Rate 14 09/13/24 14:00 Blood Pressure 138/73 09/13/24 14:59 Pulse Oximetry 98 09/13/24 14:59 Oxygen Delivery Me thod Room Air 09/13/24 14:30 MDM - Chest Pain Medical Decision Making Patient clinically appears in no acute distress. Vital signs are stable. Her ED workup today consisting of his CBC, CMP, baseline and repeat troponin, CXR, BNP, and baseline/repeat EKG. Workup is completely unremarkable. She has no previous cardiac history. She has no significant cardiac risk factors. Recommend she follow-up with her primary care provider which she is agreeable to. At this time I feel she is stable for discharge from an emergency standpoint. Return ED precautions discussed. Medical Records I reviewed the patient's medical records. Lab Data I reviewed the patient's lab results. 09/13/24 11:35 09/13/24 11:35 Radiology Impressions Chest X-Ray 09/13/24 11:06 IMPRESSION: 1. Minimal linear atelectasis or scarring at the left lung base. Laboratory Results WBC 11.40 10^3/uL (3.29-11.43) 09/13/24 11:35 RBC 4.42 10^6/uL (3.85-5.65) 09/13/24 11:35 Hgb 11.40 g/dL (11.27-16.99) 09/13/24 11:35 Hct 39.1 % (36-47) 09/13/24 11:35 MCV 88.5 fl (85-98) 09/13/24 11:35 MCH 25.8 pg (27-33) L 09/13/24 11:35 MCHC 29.2 g/dL (30-55) L 09/13/24 11:35 RDW 14.3 % (12.1-15.1) 09/13/24 11:35 Plt Count 335 10^3/cmm (157-399) 09/13/24 11:35 MPV 11.1 fL (7.4-10.4) H 09/13/24 11:35 Neut % (Auto) 67.3 % 09/13/24 11:35 Lymph % (Auto) 23.9 % 09/13/24 11:35 [place] % (Auto) 5.7 % 09/13/24 11:35 Eos % (Auto) 1.9 % 09/13/24 11:35 Baso % (Auto) 0.9 % 09/13/24 11:35 Neut # (Auto) 7.68 10^3/uL (1.8-7.7) 09/13/24 11:35 Lymph # (Auto) 2.7 10^3/uL (0.8-4.8) 09/13/24 11:35 [place] # (Auto) 0.7 10^3/uL (0.2-0.9) 09/13/24 11:35 Eos # (Auto) 0.2 10^3/uL (0.0-0.8) 09/13/24 11:35 Baso # (Auto) 0.1 10^3/uL (0.0-0.1) 09/13/24 11:35 Nucleated RBC % (auto) 0 % 09/13/24 11:35 Nucleated RBCs # 0.0 /100WBC 09/13/24 11:35 Sodium 139 mmol/L (136-145) 09/13/24 11:35 Potassium 4.0 mmol/L (3.5-5.1) 09/13/24 11:35 Chloride 102 mmol/L (98-107) 09/13/24 11:35 Carbon Dioxide 23 mmol/L (22-29) 09/13/24 11:35 Anion Gap 18.0 (5-19) 09/13/24 11:35 BUN 15 mg/dL (8-23) 09/13/24 11:35 Creatinine 0.4 mg/dL (0.5-0.9) L 09/13/24 11:35 GFR Calculation 161.2 mL/min (90-130) H 09/13/24 11:35 Glucose 92 mg/dL (65-115) 09/13/24 11:35 Calculated Osmolality 288 mOsm/kg (285-295) 09/13/24 11:35 Calcium 9.5 mg/dL (8.5-10.5) 09/13/24 11:35 Total Bilirubin 0.4 mg/dL (0.15-1.2) 09/13/24 11:35 AST 17 U/L (0-32) 09/13/24 11:35 ALT 14 U/L (0-33) 09/13/24 11:35 Alkaline Phosphatase 204 U/L (35-105) H 09/13/24 11:35 Troponin T Baseline < 6 ng/L (0-10) 09/13/24 11:35 Troponin T 120 Minute 6.00 ng/L (0-10) 09/13/24 14:00 Delta Troponin T 0.80980 ABS# (0-10) 09/13/24 14:00 NT-Pro-B Natriuret Pep 118 pg/mL (0-125) 09/13/24 11:35 Total Protein 7.4 g/dL (6.6-8.7) 09/13/24 11:35 Albumin 4.3 g/dL (3.5-5.2) 09/13/24 11:35 Globulin 3.1 g/dL (1.3-4.6) 09/13/24 11:35 All radiology interpretation(s) finalized by discharge Discharge Plan Discharge Patient Disposition: Home Clinical Impression: Atypical chest pain Condition: Stable Prescriptions: No Action Veggie Tablet 1 tab PO DAILY rosuvastatin 20 mg tablet 20 mg PO DAILY Qty: 90 3RF oxybutynin chloride 10 mg tablet extended release 24hr 10 mg PO DAILY methylprednisolone 4 mg tablets,dose pack See Rx Instructions .ROUTE .COMPLEX Rx Instructions: 4 mg orally multivitamin Tablet 1 tab PO DAILY methocarbamol 500 mg tablet 500 - 1,000 mg PO Q6H PRN (Reason: Muscle Spasm) Discharge Orders: Discharge ED (Routine); Ordered 09/13/24 Ordered By: Hanna Pompa Referrals: Marisol Almaguer MD [Primary Care Provider] - Activity Restrictions/Additional Instructions: As we discussed, I would like you to follow-up with Dr. Almaguer outpatient for ER follow-up for further evaluation of your symptoms. You need to return to the emergency department for worsening chest pain, shortness of breath, difficulty breathing, or any other concerns you may have. Print Language: Ecuadorean Coding Level of Care Code ED Rotary Furnace Operator for Zo Hummel
[2024-09-13] MEDS: aspirin 81 mg Chew Tablet 324 MG PO (11:57)
--- NOTE | 2024-09-13 12:01 | PC.NURSE ---
no cardiac leads available in room, looking for some currently.
[2024-09-13 12:06] LABS: Troponin(5th) Baseline < 6 ng/L (0-10)
[2024-09-13] MEDS: lidocaine 2% viscous 15 ML, aluminum-mag hydrox-simethicon 30 ML, sucralfate oral liq 1 GM PO (12:12)
[2024-09-13 12:20] LABS: Alanine Aminotransferase 14 U/L (0-33); Albumin Level 4.3 g/dL (3.5-5.2); Alkaline Phosphatase 204 U/L (35-105); Aspartate Amino Transferase 17 U/L (0-32); Blood Urea Nitrogen 15 mg/dL (8-23); Calcium 9.5 mg/dL (8.5-10.5); Carbon Dioxide 23 mmol/L (22-29); Chloride 102 mmol/L (98-107); Creatinine Clr Calc Pharmacy 139.6458; Globulin 3.1 g/dL (1.3-4.6); Glomerular Filtration Rate 161.2 mL/min (90-130); Glucose 92 mg/dL (65-115); NT Pro B Type Natriuretic Pept 118 pg/mL (0-125); Osmolality Calculated 288 mOsm/kg (285-295); Sodium 139 mmol/L (136-145); Total Bilirubin 0.4 mg/dL (0.15-1.2); Total Protein 7.4 g/dL (6.6-8.7)
--- NOTE | 2024-09-13 13:06 | ECG_ITS ---
[employer] Test Date: 2024-09-13 Pat Name: Carmen Whitfield Department: Room: Gender: Female Licsw: : 1960 Requested By: Sharon Jason Order Number: [id number] Reading MD: KAYLEE OROSCO Measurements Intervals [place] Rate: 48 P: 45 NM: 152 QRS: -25 QRSD: 86 T: 23 QT: 487 QTc: 438 Interpretive Statements SINUS BRADYCARDIA BORDERLINE LEFT AXIS DEVIATION [QRS AXIS < -20] Compared to ECG 09/13/2024 10:13:07 Myocardial infarct finding no longer present Electronically Signed On 09-13-2024 21:00:38 CDT by KAYLEE OROSCO [email or web address]
[2024-09-13 14:32] LABS: Troponin 5 2HR Delta 0.00001 ABS# (0-10)
== END 2024-09-13 15:00 | disposition home or self-care (01) ==
PROVIDERS: Emergency Medicine; Emergency Provider Physician Assistant; PCP Family Medicine
DX: R07.89 Other chest pain (principal); Z87.891 Personal history of nicotine dependence
CPT/HCPCS: 36415; 71045; 80053; 83880; 84484; 85025; 93005; 99285; J9999

== ENCOUNTER 2024-09-27 07:26 | Outpatient (CLI) | payer BC, SELFPAY ==
--- NOTE | 2024-09-27 07:45 | USCV_ITS ---
Nahid Carmen Age: 63 Gender: F : 1960 Exam Date: 09/27/2024 07:46 Ordering Phys: Parul Sidhu MD ([email or web address]) Technologist: DEISY Exam Location: [facility] [place] Indication: AAA HISTORY: Diameter (cm) AP x Transverse x Length Velocity (cm/s) Waveform Prox Aorta: 2.40 x 2.00 x 71.60 Mid Aorta: 1.90 x 2.00 x 70.20 Distal Aorta: 3.00 x 3.20 x 122.70 Right Iliac Prox: 0.86 x 0.91 x 135.80 Left Iliac Prox: 0.64 x 0.95 x 131.40 Stent Prox Landing x x Aneurysmal Sac Max x x Lt Lat Sac Dim Rt Lat Sac Dim Stent Dist Landing x x Right Iliac Stent x x Left Iliac Stent x x Right Renal Art Left Renal Art FINDINGS: Comparison: none available. A fusiform abdominal aortic aneurysm is noted with a maximal diameter of 3.2 cm. No evidence of periaortic fluid is detected. Moderate atherosclerotic plaque. There is evidence of atherosclerotic plaque no significan stenosis in the right common iliac artery. There is evidence of atherosclerotic plaque no significan stenosis in the left common iliac artery. CONCLUSIONS AAA, 3.2 cm, with scattered plaque. Dr. Doretha Mcdowell DO (Electronically Signed) Final Date: 27 Sep 2024 09:29 S
== END 2024-09-27 07:27 | disposition home or self-care (01) ==
PROVIDERS: PCP Family Medicine; Visit Provider Internal Medicine Cardiovascular Disease
DX: I71.40 Abdominal aortic aneurysm, without rupture, unspecified (principal); I70.0 Atherosclerosis of aorta
CPT/HCPCS: 93978

== ENCOUNTER 2024-09-28 12:51 | Outpatient (CLI) | payer BC, SELFPAY ==
--- NOTE | 2024-09-28 12:53 | XR_ITS ---
WS: [id number] DEXA (DUAL ENERGY X-RAY ABSORPTIOMETRY) Bone mineral density was performed using a Agend[employer] machine. HISTORY: POSTMENOPAUSAL COMPARISON: 08/08/2020 Lumbar spine BMD (L1-L4): 0.868 g/cm2 T score: -2.6 Z score: -1.6 Total hip BMD: Left: 0.596 g/cm2. T score: -3.3 Z score: -2.5 Right: 0.609 g/cm2. T score: -3.2 Z score: -2.4 10 year probability of a major osteoporotic fracture is 24.3%. Compared to the prior study from 08/08/2020. Lumbar spine bone mineral density has decreased by 8.7%. Bilateral hips bone mineral density has decreased by 10.4%. XR/XR DEXA axial skeleton* [id number] IMPRESSION: OSTEOPOROSIS based upon the WHO classification for females. Significant decrease in bone mineral density [facility].
== END 2024-09-28 12:52 | disposition home or self-care (01) ==
PROVIDERS: PCP Family Medicine; Visit Provider Family Medicine
DX: Z78.0 Asymptomatic menopausal state (principal); M81.0 Age-related osteoporosis without current pathological fracture
CPT/HCPCS: 77080

== ENCOUNTER → 2024-11-26 10:08 | Outpatient (BNVA) | payer BC, SELFPAY | PROVIDERS: PCP Family Medicine; Referring Provider Family Medicine; Visit Provider Internal Medicine | DX: M81.0 Age-related osteoporosis without current pathological fracture (principal) | CPT/HCPCS: 36415; 80053; 82306; 82310; 83970; 84439; 84443 ==

== ENCOUNTER 2025-02-01 10:06 | Outpatient (CLI) | payer BC, SELFPAY ==
--- NOTE | 2025-02-01 10:13 | MM_ITS ---
WS: [id number] BILATERAL 3D TOMOSYNTHESIS DIGITAL SCREENING MAMMOGRAPHY WITH CAD CLINICAL INFORMATION: SCREENING HISTORY: Screening mammogram. No current complaints. COMPARISON: 2023 TECHNIQUE: Bilateral CC and MLO views. FINDINGS: Scattered fibroglandular densities bilaterally. No suspicious focal mass, asymmetry, calcifications, or architectural distortion. No evidence of malignancy. MM/MM scr BI tomosynthesis [id number] IMPRESSION: DENSITY: There are scattered areas of fibroglandular density. BI-RADS: 1 - Negative. FOLLOW UP: 1 Year Follow-up Recommend return to annual screening mammography.
== END 2025-02-01 10:07 | disposition home or self-care (01) ==
LOC: RAD 10:07
PROVIDERS: PCP Family Medicine; Visit Provider Family Medicine
DX: Z12.31 Encounter for screening mammogram for malignant neoplasm of breast (principal); R92.323 Mammographic fibroglandular density, bilateral breasts
CPT/HCPCS: 77063; 77067

== ENCOUNTER 2025-02-16 16:35 | Outpatient (CLI) | payer BC, SELFPAY ==
--- NOTE | 2025-02-16 16:42 | XRR_ITS ---
PROCEDURE INFORMATION: Exam: XR Abdomen Exam date and time: 02/16/2025 4:47 PM Age: 64 years old Clinical indication: Condition or disease; Other: RT ankle pain for injured 1 1/2 yrs ago, pain medial side; Prior surgery; Surgery date: 6+ months; Surgery type: Gb, litho, hyst, gastric bypass TECHNIQUE: Imaging protocol: Radiologic exam of the abdomen. Views: Frontal supine view of the abdomen. 1 View. COMPARISON: CT abdomen pelvis w con* [id number] 01/20/2019 11:08 AM FINDINGS: Gastrointestinal tract: Normal. No bowel dilation. Intraperitoneal space: Clips in the right upper quadrant and mid abdomen. Bones/joints: Curvature and degenerative changes in the lumbar spine. Small bone island in the central sacrum. XR/XR KUB [id number] IMPRESSION: No acute findings.
== END 2025-02-16 16:36 | disposition home or self-care (01) ==
PROVIDERS: PCP Family Medicine; Visit Provider Nurse Practitioner Family
DX: N20.0 Calculus of kidney (principal); Z96.89 Presence of other specified functional implants; Z98.84 Bariatric surgery status; M51.369 Other intervertebral disc degeneration, lumbar region without mention of lumbar back pain or lower extremity pain; M89.8X8 Other specified disorders of bone, other site
CPT/HCPCS: 74018